=== PATIENT | male | born 1990 | race Caucasian/White ===

== ENCOUNTER 2023-09-03 14:10 | Emergency (ER) | payer MEDICAID ==
[~2023-09-03] VITALS: Ht 170.2 cm; Wt 105.0 kg
[2023-09-03] MEDS: LEVETIRACETAM 500MG PREMIX 100 ML IV ONE ×2 (14:52→15:02)
[2023-09-03] MEDS: IOHEXOL-350 100 ML BOTTLE ONE (15:03)
[2023-09-03 15:06] LABS: BASOPHILS % 0.3 % (0.0-2.0); EOSINOPHILS % 0.2 % (0.0-5.0); HEMATOCRIT. 40.7 % (42.0-52.0); HEMOGLOBIN. 13.9 g/dL (14.0-18.0); LYMPHOCYTES % 10.3 % (20.0-50.0); MEAN CORPUSCULAR HEMOGLOBIN 29.8 pg (28.0-32.0); MEAN CORPUSCULAR HGB CONC 34.2 g/dL (31.0-37.0); MEAN CORPUSCULAR VOLUME 87.4 fL (80.0-94.0); MEAN PLATELET VOLUME 8.8 fl (7.4-10.4); NEUTROPHILS % 85.2 % (40.0-76.0); PLATELET 139 x1000/uL (130-400); RED BLOOD CELL COUNT 4.66 mill/uL (4.7-6.1); RED CELL DISTRIBUTION WIDTH 13.3 % (11.6-14.6)
[2023-09-03 15:10] LABS: CHLORIDE 108 mEq/L (98-107); POTASSIUM 3.9 mEq/L (3.5-5.1); SODIUM 137 mEq/L (136-145)
[2023-09-03 15:11] LABS: CALCIUM 9.1 mg/dL (8.7-10.4); CARBON DIOXIDE 23 mEq/L (21-32)
[2023-09-03 15:14] LABS: INR 1.1
[2023-09-03 15:16] LABS: CREATININE 0.8 mg/dL (0.6-1.3); GLUCOSE 154 mg/dL (70-105); UREA NITROGEN BLOOD 11 mg/dL (9-23)
[2023-09-03 15:18] LABS: ALANINE AMINOTRANSFERASE 26 IU/L (10-49); ALBUMIN 3.9 g/dL (3.2-4.8); ASPARTATE AMINOTRANSFERASE 27 IU/L (<34); BILIRUBIN TOTAL 0.8 mg/dL (0.1-1.0)
[2023-09-03 15:19] LABS: PROTEIN TOTAL 6.5 g/dL (6.0-8.3)
[2023-09-03 15:50] VITALS: TEMP 98.2
[2023-09-03] MEDS ORDERED: FENTANYL 2500MCG/250ML PMX 250 ML IV ONE (16:00)
[2023-09-03 16:13] LABS: ETHANOL BLOOD < 10 mg/dL (<10); TROPONIN I HIGH SENSITIVITY < 4 ng/L (3.0-53)
[2023-09-03] MEDS ORDERED: FENTANYL 2500MCG/250ML PMX 250 ML IV PRN (16:15)
[2023-09-03] MEDS: ETOMIDATE 2MG/ML 10ML VIAL IV ONE (16:37)
[2023-09-03] MEDS: ROCURONIUM BROMIDE 10MG/ML VIAL 5ML IV ONE (16:37)
[2023-09-03 16:53] VITALS: PULSE 78; RESP 22
[2023-09-03] MEDS: NICARDIPINE 40MG/200ML PREMIX 200 ML IV STA (17:07)
[2023-09-03 17:08] VITALS: BP 180/100; RESP 22; O2SAT 95
[2023-09-03] MEDS: PROPOFOL 10MG/ML 100ML 100 ML IV SCH (17:08)
== END 2023-09-03 17:15 | disposition short-term general hospital (02) ==
LOC: ER 14:10
DX: I60.8 Other nontraumatic subarachnoid hemorrhage (principal); R07.9 Chest pain, unspecified; Z98.890 Other specified postprocedural states
CPT/HCPCS: 80053; 80320; 83690; 85025; 85610; 84484; 36415; 71045; 70496; 70498; 70450; 93005; 31500; 96367; 96365; 96375; 99291; 99292; Q9967; Z7610; J1953; J3490 ×2; J2704; J3010; G0480